=== PATIENT | female | born 1950 | race Caucasian/White ===

== ENCOUNTER 2022-12-03 08:00 | Outpatient (CLI) | payer MEDICARE ==
--- NOTE | 2022-12-03 14:10 | XRAY Report ---
PROCEDURE: Shoulder 3 View RT INDICATIONS: RIGHT SHOULDER PAIN TECHNIQUE: 3 views of the shoulder were acquired. COMPARISON: None. FINDINGS: Bones: No fractures or dislocations. 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 The hardware appe ars intact without surrounding fracture or lucency. No suspicious bony lesions. Visualized ribs appe ar intact. Soft tissues: No suspicious soft tissue calcifications. The visualized lungs are within normal limi ts. IMPRESSION: Right shoulder arthroplasty without evidence of complication. No acute fracture or dislocation. Reviewed by: Homero Arechiga MD on 12/03/2022 2:08 PM PDT Approved by: Homero Arechiga MD on 12/03/2022 2:08 PM PDT Station ID: [id number]
== END 2022-12-03 23:59 | disposition home or self-care (01) ==
LOC: DI.S 08:00
PROVIDERS: ATTEND Emergency Medicine
DX: M25.511 Pain in right shoulder (principal); Z96.611 Presence of right artificial shoulder joint